=== PATIENT | female | born 1985 | race Caucasian/White ===

== ENCOUNTER 2016-05-24 06:37 | Emergency (ER) | payer OTHER | END 2016-05-24 06:40 | disposition home or self-care (01) | LOC: CED 06:37 | DX: J02.0 Streptococcal pharyngitis (principal); F17.210 Nicotine dependence, cigarettes, uncomplicated; Z88.2 Allergy status to sulfonamides | CPT/HCPCS: 87880; 96372; 99283; J0561 ==

== ENCOUNTER 2016-06-17 13:07 | Emergency (ER) | payer OTHER ==
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
== END 2016-06-17 13:15 | disposition home or self-care (01) ==
LOC: CFTX 13:07
DX: S63.602A Unspecified sprain of left thumb, initial encounter (principal); Z88.2 Allergy status to sulfonamides; X58.XXXA Exposure to other specified factors, initial encounter; Y92.9 Unspecified place or not applicable
CPT/HCPCS: 71020; 73140; 99284